=== PATIENT | male | born 1990 | race African-American/Black ===

== ENCOUNTER 2017-02-24 09:25 | Emergency (ER) | payer OTHER ==
[~2017-02-24] VITALS: Ht 170.2 cm; Wt 63.5 kg
[2017-02-24] MEDS ORDERED: NKM (09:31)
[2017-02-24 09:42] VITALS: BP 148/87
[2017-02-24] MEDS ORDERED: Dexamethasone 4mg/ml vial IM ONE (10:00)
[2017-02-24] MEDS ORDERED: AUGMENTIN 875-1 EAC1 ORAL (10:02)
[2017-02-24 10:21] VITALS: BP 131/67
--- NOTE | 2017-02-24 14:30 | Emergency Room Report ---
History of Present Illness General Chief Complaint: General Complaint Source: Patient Present Illness HPI 26-year-old male presents to ED complaining of a swollen uvula. States that he noticed it this morning. States that the uvula is touching his tongue. Denies any pain. Denies any sore throat or cough. Denies any difficulty swallowing. Denies shortness of breath. No other aggravating relieving factors. Denies any other associated symptoms Allergies: Coded Allergies: No Known Allergies (Unverified , 02/24/17) Patient History Past Medical History: none Past Surgical History: none Pertinent Family History: none Social History: Denies: alcohol use, drug use, smoking Immunizations: UTD Reviewed Nursing Documentation: PMH: Agreed, PSxH: Agreed Nursing Documentation-PMH Past Medical History: No Stated History Review of Systems All Other Systems: negative except mentioned in HPI Physical Exam Vital Signs Date Time Temp Pulse Resp B/P Pulse Ox O2 Delivery O2 Flow Rate FiO2 02/24/17 09:28 98.2 94 16 138/81 100 Room Air Sp02 EP Interpretation: reviewed, normal General Appearance: no apparent distress, alert, GCS 15, non-toxic Head: normocephalic Eyes: bilateral eye PERRL, bilateral eye normal inspection ENT: hearing grossly normal, no angioedema, normal voice, other - uvula enlarged, erythematous, touching tongue Neck: full range of motion, supple/symm/no masses Respiratory: normal inspection Cardiovascular #1: normal inspection Gastrointestinal: normal inspection Rectal: deferred Genitourinary: no CVA tenderness Musculoskeletal: normal inspection Neurologic: alert, oriented x3, responsive, motor strength/tone normal, sensory intact, speech normal Psychiatric: normal inspection Skin: normal inspection Lymphatic: normal inspection Medical Decision Making Diagnostic Impression: Primary Impression: Uvular swelling ER Course Hospital Course 26-year-old male presents to ED with enlarged uvula. Denies any pain or shortness of breath Differential diagnoses include: URI, pharyngitis, otitis media Clinical course Patient placed on stretcher. After initial history, physical exam reveals a young male in no acute distress. Bilateral TM unremarkable. There is a lengthy and erythematous uvula. Midline. Touching the tongue. No pharyngeal erythema. No tonsillar exudate.. No lymphadenopathy. consistent with uvulitis. discussed with ENT Dr De La Vega. Recommended steroids and antibiotics. Recommended followup with ENT given decadron in ED Diagnosis - uvular swelling Stable and discharged home with prescriptions for Rx Augmentin. Instructed to followup with PMD. return to ED if symptoms recur or worsen Last Vital Signs Date Time Temp Pulse Resp B/P Pulse Ox O2 Delivery O2 Flow Rate FiO2 02/24/17 10:21 97.8 86 19 131/67 99 Room Air Status: improved Disposition: HOME, SELF-CARE Condition: Stable Scripts Amoxicillin/Potassium Clav 875-125* (AUGMENTIN 875-125 TABLET*) 1 Each Tablet 1 TAB ORAL TWICE A DAY for 10 Days, TAB Prov: VALENTINA ROLDAN M.D. 02/24/17 Referrals: VALENTINA ROLDAN M.D. (Family) NOT CHOSEN IPA/,REFERRING (PCP) Patient Instructions: VALENTINA Paredes M.D. Feb 24, 2017 14:30
== END 2017-02-24 10:21 | disposition home or self-care (01) ==
LOC: EMR 09:40
DX: K13.79 Other lesions of oral mucosa (principal)
CPT/HCPCS: 99283; J1100